=== PATIENT | female | born 1965 | race Caucasian/White ===

== ENCOUNTER → 2016-09-10 | Outpatient (CLI) | payer BC ==
[2016-09-10 09:10] LABS: CHLORIDE,CL 108 mmol/L (98-110); SODIUM,NA 141 mmol/L (136-146)
== END ==
LOC: MW.CHOBGYN 08:23
PROVIDERS: ATTEND Nurse Practitioner Women's Health
DX: E03.9 Hypothyroidism, unspecified (principal); E78.5 Hyperlipidemia, unspecified; E55.9 Vitamin D deficiency, unspecified; R53.83 Other fatigue
CPT/HCPCS: 36415; 80053; 80061; 82607; 82652; 84443; 85025

== ENCOUNTER 2019-03-13 16:30 | Emergency (ER) | payer BC ==
[2019-03-13] MEDS ORDERED: Sodium Chloride 0.9% 1,000 ML IV ONE (16:34)
[2019-03-13] MEDS ORDERED: Sodium Chloride 0.9% 10 ML Syringe FLUSH PRN (16:34)
[2019-03-13] MEDS ORDERED: Sodium Chloride 0.9% 2.5 ML Syringe FLUSH PRN (16:34)
[2019-03-13] MEDS ORDERED: Ondansetron 4 MG/2 ML SDV IVPUSH ONE (16:47)
[2019-03-13] MEDS ORDERED: diphenhydrAMINE 50 MG/ML SDV IVPUSH ONE (16:47)
[2019-03-13] MEDS ORDERED: Ketorolac 30 MG/ML SDV IVPUSH ONE (16:47)
--- NOTE | 2019-03-13 16:56 | EDM.PDOC ---
ED HPI GENERAL MEDICAL PROBLEM - General Chief Complaint: Abdominal Pain Stated Complaint: ABDOMINAL PAIN Time Seen by Provider: 03/13/19 16:32 Source of Information: Reports: Patient History Limitations: Reports: No Limitations - History of Present Illness INITIAL COMMENTS - FREE TEXT/NARRATIVE: HISTORY AND PHYSICAL: History of present illness: Patient is a 54-year-old female who presents to the emergency room with complaints of upper abdominal pain 9 days. Patient reports that pain started after she was moving heavy furniture well at home. Initially she had thought that this could be musculoskeletal related that as the pain has not improved she feels there is "something more". She describes the pain as constant pressure to the epigastric area in the left and right upper quadrants. She does have some left flank pain and tenderness. Reports intermittent nausea without vomiting. She states she feels like her epigastric area is "swollen". States eating doesn't make the pain worse; but "sharper" in intensity. She has tried several [id number] products such as Tums, Prilosec and laxatives, without any improvement. Today she had gone to the clinic who had done lab work and an x -ray. Lab work is unremarkable. X-ray done at [facility] showed prominent segment of air-filled bowel within the right mid abdomen possibly representing a dilated segment of small bowel vs air within the cecum. Recommended CT, therefor was referred to our ER. Past medical history of multiple previous GI problems. Patient denies any fever, chills, headache, change in vision, syncope or near syncope. Denies any chest pain, back pain, shortness of breath or cough. Denies any vomiting, diarrhea, constipation or dysuria. Has not noted any blood in urine or stool. Patient has been eating and drinking appropriately. Review of systems: As per history of present illness and below otherwise all systems reviewed and negative. Past medical history: As per history of present illness and as reviewed below otherwise noncontributory. Surgical history: As per history of present illness and as reviewed below otherwise noncontributory. Social history: See social history for further information Family history: As per history of present illness and as reviewed below otherwise noncontributory. Physical exam: General: Well-developed and well-nourished 54-year-old female. Alert and oriented. Nontoxic appearing and in no acute distress. HEENT: Atraumatic, normocephalic, pupils equal and reactive bilaterally, negative for conjunctival pallor or scleral icterus, mucous membranes moist, trachea midline. No drooling or trismus noted. No meningeal signs. No hot potato voice noted. Lungs: Clear to auscultation, breath sounds equal bilaterally, chest nontender. Heart: S1S2, regular rate and rhythm without overt murmur Abdomen: Soft, nondistended, RUQ/LUQ and epigastric tenderness. Negative for masses or hepatosplenomegaly. Left sided costovertebral tenderness. Pelvis: Stable nontender. Skin: Intact, warm, dry. No lesions or rashes noted. Extremities: Atraumatic, moves all extremities per self without difficulty or deficits, negative for cords or calf pain. Neurovascular unremarkable. Neuro: Awake, alert, oriented. Cranial nerves II through XII unremarkable. Cerebellum unremarkable. Motor and sensory unremarkable throughout. Exam nonfocal. Notes: Please note that the provider at [place] does have an H. pylori and stool studies pending. She has prescribed a PPI and Cipro which are waiting for patient to leaf size picker. CT shows questionable thickening of the wall of the descending colon, consider infectious/inflammatory etiologies. Urinary bladder wall thickening. Patient does have wbc's in the urine, we will treat for UTI. Supportive care measures were reviewed and discussed. Voices understanding and is agreeable to plan of care. Denies any further questions or concerns at this time. Diagnostics: CBC, CMP, UA, CT abd/pelvis Therapeutics: IV fluids, Toradol, Zofran, Benadryl, Cipro Impression: Abdominal pain UTI Plan: 1. Beaver diet and advance diet as tolerated. Small frequent sips of fluids to prevent dehydration. 2. music supervisor your prescription tomorrow and start the Cipro (for the colon and UTI ). 3. Follow up with your primary care provider and general surgeon as we discussed. 4. Return to the ED as needed and as discussed. Definitive disposition and diagnosis as appropriate pending reevaluation and review of above. Abdomen Pain Score (Numeric/FACES): 5 - Related Data Allergies Allergy/AdvReac Type Severity Reaction Status Date / Time adhesive tape Allergy Rash Verified 03/13/19 16:48 latex Allergy Rash Verified 03/13/19 16:48 shellfish derived Allergy Rash Verified 03/13/19 16:48 Home Meds: Home Meds Levothyroxine Sodium [Synthroid] 125 mcg PO DAILY 09/25/15 [History] Ciprofloxacin [Ciprofloxacin HCl] 500 mg PO BID 03/13/19 [History] Ezetimibe 10 mg PO DAILY 03/13/19 [History] Fenofibric Acid (Choline) [Fenofibric Acid] 135 mg PO DAILY 03/13/19 [History] Pantoprazole [ProTONIX] 40 mg PO DAILY 03/13/19 [History] Past Medical History HEENT History: Reports: Impaired Vision Other HEENT History: wears glasses Cardiovascular History: Reports: High Cholesterol Other Cardiovascular History: states has a "fatty liver" Respiratory History: Reports: PE Other Respiratory History: states had Pulmonary Embolism 20 years ago after Hysterectomy Gastrointestinal History: Reports: Chronic Constipation, Diverticulosis, GERD, Irritable Bowel Syndrome, Other (See Below) Other Gastrointestinal History: hx of diverticulitis Genitourinary History: Reports: None BRIM CUTTER History: Reports: None Musculoskeletal History: Reports: Back Pain, Chronic, Fracture, Fibromyalgia Other Musculoskeletal History: hx of fx left leg, toes, ribs wrist, arm; states has 2 bulging discs in back Neurological History: Reports: Headaches, Chronic Other Neuro History: states due to sinuses Psychiatric History: Reports: None Endocrine/Metabolic History: Reports: Hypothyroidism, Obesity/BMI 30+ Hematologic History: Reports: None Immunologic History: Reports: None Oncologic (Cancer) History: Reports: Uterine Dermatologic History: Reports: Other (See Below) Other Dermatologic History: states has dry skin due to low thyroid - Past Surgical History GI Surgical History: Reports: Appendectomy, Hernia, Inguinal Female Surgical History: Reports: Breast Biopsy, D&C, Hysterectomy, Salpingo- Oophorectomy, Tubal Ligation, Other (See Below) Oncologic Surgical History: Reports: Other (See Below) ED ROS GENERAL - Review of Systems Review Of Systems: ROS reveals no pertinent complaints other than HPI. ED EXAM, GI/ABD - Physical Exam Exam: See Below (See dictation) Course - Vital Signs Last Recorded V/S: Last Vital Signs Temp 96.2 F 03/13/19 16:44 Pulse 72 03/13/19 19:45 Resp 18 03/13/19 19:45 BP 131/76 03/13/19 19:45 Pulse Ox 98 03/13/19 19:45 - Orders/Labs/Meds Labs: Laboratory Tests 03/13/19 03/13/19 03/13/19 Range/Units 17:11 17:11 17:11 WBC 11.18 H (4.0-11.0) K/uL RBC 4.86 (4.30-5.90) M/uL Hgb 15.2 (12.0-16.0) g/dL Hct 44.9 (36.0-46.0) % MCV 92.4 (80.0-98.0) fL MCH 31.3 (27.0-32.0) pg MCHC 33.9 (31.0-37.0) g/dL RDW Std Deviation 48.2 (28.0-62.0) fl RDW Coeff of Bernadette 14 (11.0-15.0) % Plt Count 318 (150-400) K/uL MPV 11.20 (7.40-12.00) fL Neut % (Auto) 61.3 (48.0-80.0) % Lymph % (Auto) 30.9 (16.0-40.0) % Nye % (Auto) 5.0 (0.0-15.0) % Eos % (Auto) 2.2 (0.0-7.0) % Baso % (Auto) 0.6 (0.0-1.5) % Neut # (Auto) 6.9 H (1.4-5.7) K/uL Lymph # (Auto) 3.5 H (0.6-2.4) K/uL Nye # (Auto) 0.6 (0.0-0.8) K/uL Eos # (Auto) 0.3 (0.0-0.7) K/uL Baso # (Auto) 0.1 (0.0-0.1) K/uL Nucleated RBC % 0.0 /100WBC Nucleated RBCs # 0 K/uL Sodium 133 L (136-145) mmol/L Potassium 4.3 (3.5-5.1) mmol/L Chloride 96 L (98-107) mmol/L Carbon Dioxide 23.5 (21.0-32.0) mmol/L BUN 7 (7.0-18.0) mg/dL Creatinine 0.8 (0.6-1.0) mg/dL Est Cr Clr Drug Dosing 69.42 mL/min Estimated GFR (MDRD) > 60.0 ml/min Glucose 101 (74-106) mg/dL Calcium 9.3 (8.5-10.1) mg/dL Total Bilirubin 0.5 (0.2-1.0) mg/dL AST 24 (15-37) IU/L ALT 26 (14-63) IU/L Alkaline Phosphatase 100 (46-116) U/L Total Protein 8.8 H (6.4-8.2) g/dL Albumin 4.3 (3.4-5.0) g/dL Globulin 4.5 H (2.6-4.0) g/dL Albumin/Globulin Ratio 1.0 (0.9-1.6) Lipase (73-393) U/L Urine Color YELLOW Urine Appearance CLEAR Urine pH 5.5 (5.0-8.0) Ur Specific [place] <= 1.005 (1.001-1.035) Urine Protein NEGATIVE (NEGATIVE) mg/dL Urine Glucose (UA) NEGATIVE (NEGATIVE) mg/dL Urine Ketones NEGATIVE (NEGATIVE) mg/dL Urine Occult Blood NEGATIVE (NEGATIVE) Urine Nitrite NEGATIVE (NEGATIVE) Urine Bilirubin NEGATIVE (NEGATIVE) Urine Urobilinogen 0.2 (<2.0) EU/dL Ur Leukocyte Esterase TRACE H (NEGATIVE) Urine RBC 0-1 (0-2/HPF) Urine WBC 4-5 (0-5/HPF) Ur Epithelial Cells OCCASIONAL (NONE-FEW) Urine Bacteria FEW (NEGATIVE) Urine Mucus FEW (NONE-MOD) 03/13/19 Range/Units 17:11 WBC (4.0-11.0) K/uL RBC (4.30-5.90) M/uL Hgb (12.0-16.0) g/dL Hct (36.0-46.0) % MCV (80.0-98.0) fL MCH (27.0-32.0) pg MCHC (31.0-37.0) g/dL RDW Std Deviation (28.0-62.0) fl RDW Coeff of Bernadette (11.0-15.0) % Plt Count (150-400) K/uL MPV (7.40-12.00) fL Neut % (Auto) (48.0-80.0) % Lymph % (Auto) (16.0-40.0) % Nye % (Auto) (0.0-15.0) % Eos % (Auto) (0.0-7.0) % Baso % (Auto) (0.0-1.5) % Neut # (Auto) (1.4-5.7) K/uL Lymph # (Auto) (0.6-2.4) K/uL Nye # (Auto) (0.0-0.8) K/uL Eos # (Auto) (0.0-0.7) K/uL Baso # (Auto) (0.0-0.1) K/uL Nucleated RBC % /100WBC Nucleated RBCs # K/uL Sodium (136-145) mmol/L Potassium (3.5-5.1) mmol/L Chloride (98-107) mmol/L Carbon Dioxide (21.0-32.0) mmol/L BUN (7.0-18.0) mg/dL Creatinine (0.6-1.0) mg/dL Est Cr Clr Drug Dosing mL/min Estimated GFR (MDRD) ml/min Glucose (74-106) mg/dL Calcium (8.5-10.1) mg/dL Total Bilirubin (0.2-1.0) mg/dL AST (15-37) IU/L ALT (14-63) IU/L Alkaline Phosphatase (46-116) U/L Total Protein (6.4-8.2) g/dL Albumin (3.4-5.0) g/dL Globulin (2.6-4.0) g/dL Albumin/Globulin Ratio (0.9-1.6) Lipase 248 (73-393) U/L Urine Color Urine Appearance Urine pH (5.0-8.0) Ur Specific [place] (1.001-1.035) Urine Protein (NEGATIVE) mg/dL Urine Glucose (UA) (NEGATIVE) mg/dL Urine Ketones (NEGATIVE) mg/dL Urine Occult Blood (NEGATIVE) Urine Nitrite (NEGATIVE) Urine Bilirubin (NEGATIVE) Urine Urobilinogen (<2.0) EU/dL Ur Leukocyte Esterase (NEGATIVE) Urine RBC (0-2/HPF) Urine WBC (0-5/HPF) Ur Epithelial Cells (NONE-FEW) Urine Bacteria (NEGATIVE) Urine Mucus (NONE-MOD) Meds: Medications Discontinued Medications Generic Name Dose Route Start Last Admin Trade Name Jamie PRN Reason Stop Dose Admin Ciprofloxacin 500 mg 03/13/19 19:16 03/13/19 19:37 Ciprofloxacin Hcl PO 03/13/19 19:17 500 mg ONETIME ONE Administration Diphenhydramine HCl 50 mg 03/13/19 16:47 03/13/19 17:15 Benadryl IVPUSH 03/13/19 16:48 50 mg ONETIME ONE Administration Sodium Chloride 1,000 mls @ 125 mls/hr 03/13/19 16:34 03/13/19 17:13 Normal Saline IV 03/14/19 00:33 125 mls/hr STAT ONE Administration Iopamidol 100 ml 03/13/19 18:35 03/13/19 18:35 Isovue Multipack-370 (76%) IVPUSH 03/13/19 18:36 100 ml ONETIME STA Administration Ketorolac Tromethamine 30 mg 03/13/19 16:47 03/13/19 17:14 Toradol IVPUSH 03/13/19 16:48 30 mg ONETIME ONE Administration Ondansetron HCl 4 mg 03/13/19 16:47 03/13/19 17:15 Zofran IVPUSH 03/13/19 16:48 4 mg ONETIME ONE Administration Sodium Chloride 10 ml 03/13/19 16:34 03/13/19 17:13 Saline Flush FLUSH 10 ml ASDIRECTED PRN Administration Keep Vein Open Sodium Chloride 2.5 ml 03/13/19 16:34 03/13/19 17:13 Saline Flush FLUSH 2.5 ml ASDIRECTED PRN Administration Keep Vein Open Departure - Departure Time of Disposition: 19:15 Disposition: Home, Self-Care 01 Clinical Impression: Abdominal pain Qualifiers: Abdominal location: upper abdomen, unspecified Qualified Code(s): R10.10 - Upper abdominal pain, unspecified UTI (urinary tract infection) Qualifiers: Urinary tract infection type: acute cystitis Hematuria presence: with hematuria Qualified Code(s): N30.01 - Acute cystitis with hematuria - Discharge Information Instructions: Urinary Tract Infection, Adult, [id number], Abdominal Pain, Adult, [id number] Referrals: Catrachita Gordon COMMUNICATION STUDIES PROFESSOR [Primary Care Provider] - Forms: ED Department Discharge Additional Instructions: The following information is given to patients seen in the emergency department who are being discharged to home. This information is to outline your options for follow-up care. We provide all patients seen in our emergency department with a follow-up referral. The need for follow-up, as well as the timing and circumstances, are variable depending upon the specifics of your emergency department visit. If you don't have a primary care physician on staff, we will provide you with a referral. We always advise you to contact your personal physician following an emergency department visit to inform them of the circumstance of the visit and for follow-up with them and/or the need for any referrals to a consulting specialist. The emergency department will also refer you to a specialist when appropriate. This referral assures that you have the opportunity for follow-up care with a specialist. All of these measure are taken in an effort to provide you with optimal care, which includes your follow-up. Under all circumstances we always encourage you to contact your private physician who remains a resource for coordinating your care. When calling for follow-up care, please make the office aware that this follow-up is from your recent emergency room visit. If for any reason you are refused follow-up, please contact the [facility] Emergency Department at and asked to speak to the emergency department charge nurse. [facility] [address] [place] [id number] [address] [facility] - General Surgery Professional Building [address], [address] [place] [address] 1. Beaver diet and advance diet as tolerated. Small frequent sips of fluids to prevent dehydration. 2. music supervisor your prescription tomorrow and start the Cipro (for the colon and UTI ). 3. Follow up with your primary care provider and general surgeon as we discussed. 4. Return to the ED as needed and as discussed.
[2019-03-13 17:54] LABS: BLOOD UREA NITROGEN,BUN 7 mg/dL (7.0-18.0); CARBON DIOXIDE,CO2 23.5 mmol/L (21.0-32.0); CHLORIDE,CL 96 mmol/L (98-107); GLUCOSE RANDOM 101 mg/dL (74-106); POTASSIUM,K 4.3 mmol/L (3.5-5.1); SODIUM,NA 133 mmol/L (136-145)
[2019-03-13] MEDS ORDERED: Iopamidol 755 MG/ML 500 ML Multipack Bottle IVPUSH STA (18:35)
--- NOTE | 2019-03-13 19:05 | CT ---
Indication: Dilated loops of bowel, right upper quadrant. Technique: Multiple contiguous axial images were obtained from the thoracic inlet through the upper abdomen after the intravenous administration 100 milliliters Isovue 370. Please note that all CT scans at this facility use dose modulation, iterative reconstruction, and/or weight-based dosing when appropriate to reduce radiation dose to as low as reasonably achievable. Comparison: None Findings: Bibasilar atelectasis is identified. The lung bases are clear. The heart is normal in size. No pericardial effusions identified. The liver, gallbladder, spleen, pancreas, adrenals, and kidneys are normal. No intrahepatic biliary ductal dilatation is identified. A small right renal cyst is identified. No hydronephrosis is identified. The liver is enlarged measuring 22 centimeters in size. In the pelvis, the urinary bladder demonstrates wall thickening. No uterus is identified. The small and large bowel is normal in caliber. There is questionable thickening of the ascending colon wall. No free air free fluid is identified within the abdomen or pelvis. Aorta is normal in caliber. Vascular calcifications are identified. Degenerative changes of the spine are identified. Impression: Hepatomegaly. Questionable thickening of the wall of the ascending colon, consider infectious/inflammatory etiologies. Urinary bladder wall thickening. Please note that all CT scans at this facility use dose modulation, iterative reconstruction, and/or weight-based dosing when appropriate to reduce radiation dose to as low as reasonably achievable. Dictated by Mirian Castellon MD @ Mar 13 2019 7:00PM Signed by Dr. Mirian Castellon @ Mar 13 2019 7:04PM
[2019-03-13] MEDS ORDERED: Ciprofloxacin 500 MG Tab PO ONE (19:16)
[2019-03-13 19:45] VITALS: BP 131/76; PULSE 72
== END 2019-03-13 19:46 | disposition home or self-care (01) ==
LOC: MW.ED 16:30
DX: R10.11 Right upper quadrant pain (principal); R10.13 Epigastric pain; N30.01 Acute cystitis with hematuria; E78.00 Pure hypercholesterolemia, unspecified; E03.9 Hypothyroidism, unspecified; K21.9 Gastro-esophageal reflux disease without esophagitis; E66.9 Obesity, unspecified; Z68.30 Body mass index [BMI] 30.0-30.9, adult; Z79.890 Hormone replacement therapy; Z79.899 Other long term (current) drug therapy; Z91.040 Latex allergy status; Z91.013 Allergy to seafood; Z91.048 Other nonmedicinal substance allergy status
CPT/HCPCS: 74177; 80053; 81001; 83690; 85025; 87086; 96361; 96374; 96375; 99284; A9270; J1200; J1885; J2405; J7040; Q9967

== ENCOUNTER 2019-05-15 08:47 | Day surgery (SDC) | payer BC ==
[~2019-05-15 08:47] MED LIST: Lactated Ringers 1,000 ML IV SCH; Sodium Chloride 0.9% 10 ML SDV IV PRN; Sodium Chloride 0.9% 10 ML Syringe FLUSH PRN; Sodium Chloride 0.9% 2.5 ML Syringe FLUSH PRN
--- NOTE | 2019-05-15 09:33 | PCM.PREANE ---
Preanesthetic Assessment - Anesthesia/Transfusion/Family Hx Anesthesia History: Prior Anesthesia Reaction (allergic to some unknown anesthesia drug) Other Type of Anesthesia Reaction Comment: states she, her sister & her mom all has problems with N&V post anesthesia Family History of Anesthesia Reaction: No Transfusion History: Prior Transfusion Without Reaction - Review of Systems General: No Symptoms Pulmonary: No Symptoms Cardiovascular: No Symptoms Neurological: No Symptoms Other: Reports: None - Physical Assessment NPO Status Date: 05/14/19 Height: 5 ft 5 in Weight: 83.461 kg ASA Class: 3 Mental Status: Alert & Oriented x3 Airway Class: Mallampati = 2 Dentition: Reports: Bridge (central maxiallary) ROM/Head Extension: Full Lungs: Clear to Auscultation, Normal Respiratory Effort Cardiovascular: Regular Rate, Regular Rhythm - Allergies Allergies/Adverse Reactions: Allergies Allergy/AdvReac Type Severity Reaction Status Date / Time adhesive tape Allergy Rash/bliste Verified 05/15/19 09:32 rs latex Allergy Rash Verified 05/15/19 09:32 morphine Allergy Nausea and Verified 05/15/19 09:32 Vomiting shellfish derived Allergy Rash Verified 05/15/19 09:32 - Blood Blood Available: No - Anesthesia Plan Pre-Op Medication Ordered: None - Acknowledgements Anesthesia Type Planned: General Anesthesia Pt an Appropriate Candidate for the Planned Anesthesia: Yes Alternatives and Risks of Anesthesia Discussed w Pt/Guardian: Yes Pt/Guardian Understands and Agrees with Anesthesia Plan: Yes Additional Comments: PMH: RAD, thyroid replacement, IBS, smoker, hx of PE chart review shows that in 2010 she had GA using the following meds without any adverse reaction (dexamethasone, zofran, toradol, Sevo, ephedrine, fentanyl, midazolam, propofol, sux, and cefoxitan) PLAN: TIVA with propofol and midaz and/or fent as needed. PreAnesthesia Questionnaire HEENT History: Reports: Allergic Rhinitis Other HEENT History: wears glasses for night driving Cardiovascular History: Reports: High Cholesterol Other Cardiovascular History: states has low blood pressure Respiratory History: Reports: PE, Other (See Below) Other Respiratory History: states had Pulmonary Embolism over 20 years ago after Hysterectomy, states has bronchial asthma and has inhaler for when she gets sick Gastrointestinal History: Reports: Diverticulosis, Irritable Bowel Syndrome, Other (See Below) Other Gastrointestinal History: occasional heartburn Genitourinary History: Reports: Renal Calculus CHILD AND ADOLESCENT PSYCHIATRIST History: Reports: Endometriosis Musculoskeletal History: Reports: Back Pain, Chronic, Fracture, Fibromyalgia Other Musculoskeletal History: hx of fx left leg, toes, ribs wrist, arm; states has 2 bulging discs in back Neurological History: Reports: None Psychiatric History: Reports: None Endocrine/Metabolic History: Reports: Hypothyroidism Hematologic History: Reports: Blood Transfusion(s) Immunologic History: Reports: None Oncologic (Cancer) History: Reports: None Dermatologic History: Reports: Other (See Below) Other Dermatologic History: states has dry skin due to low thyroid - Infectious Disease History Infectious Disease History: Reports: Chicken Pox - Past Surgical History Head Surgeries/Procedures: Reports: None HEENT Surgical History: Reports: None Cardiovascular Surgical History: Reports: None Respiratory Surgical History: Reports: None GI Surgical History: Reports: Appendectomy, Colonoscopy, Hernia, Inguinal Female Surgical History: Reports: Breast Biopsy, D&C, Hysterectomy, Salpingo- Oophorectomy, Tubal Ligation, Other (See Below) Other Female Surgeries/Procedures: exploratory Laparoscopy x3 Endocrine Surgical History: Reports: None Neurological Surgical History: Reports: None Musculoskeletal Surgical History: Reports: Other (See Below) Other Musculoskeletal Surgeries/Procedures:: surgery for left cracked knee Oncologic Surgical History: Reports: Biopsy of Breast Dermatological Surgical History: Reports: None - SUBSTANCE USE Smoking Status *Q: Current Every Day Smoker Tobacco Use Within Last Twelve Months: Cigarettes - HOME MEDS Home Medications: Home Meds Levothyroxine Sodium [Synthroid] 125 mcg PO DAILY 09/25/15 [History] Ezetimibe 10 mg PO DAILY 03/13/19 [History] Fenofibric Acid (Choline) [Fenofibric Acid] 135 mg PO DAILY 03/13/19 [History] Albuterol Sulfate [Albuterol Sulfate Hfa] 1 - 2 puff INH ASDIRECTED PRN [History] Ascorbic Acid [Vitamin C] 2 tab PO DAILY 05/11/19 [History] Calcium Carbonate [Tums] 1 tab.chew CHEW ASDIRECTED PRN 05/11/19 [History] Cholecalciferol (Vitamin D3) [Vitamin D3] 2,000 units PO DAILY 05/11/19 [History ] Cyanocobalamin (Vitamin B-12) [Vitamin B12] 2,500 mg PO ASDIRECTED 05/11/19 [ History] Magnesium Oxide 400 mg PO DAILY 05/11/19 [History] Ubidecarenone [Coq-10] 200 mg PO DAILY 05/11/19 [History] Zinc Gluconate [Zinc] 50 mg PO DAILY 05/11/19 [History] - CURRENT (IN HOUSE) MEDS Current Meds: Current Medications Lactated Ringer's (Ringers, Lactated) 1,000 mls @ 125 mls/hr IV ASDIRECTED NGOC Sodium Chloride (Saline Flush) 10 ml FLUSH ASDIRECTED PRN PRN Reason: Keep Vein Open Sodium Chloride (Saline Flush) 2.5 ml FLUSH ASDIRECTED PRN PRN Reason: Keep Vein Open Sodium Chloride (Saline Flush) 10 ml FLUSH ASDIRECTED PRN PRN Reason: Keep Vein Open Sodium Chloride (Saline Flush) 2.5 ml FLUSH ASDIRECTED PRN PRN Reason: Keep Vein Open Sodium Chloride (Normal Saline) 10 ml IV ASDIRECTED PRN PRN Reason: IV Use
[2019-05-15] MEDS ORDERED: Propofol 200 MG/20 ML SDV ONE (10:37)
[2019-05-15] MEDS ORDERED: Midazolam 1 MG/ML 2 ML SDV ONE (10:37)
[2019-05-15] MEDS ORDERED: Lidocaine 2% 5 ML SDV ONE (10:39)
[2019-05-15] MEDS ORDERED: Glycopyrrolate 0.2 MG/ML SDV ONE (10:39)
[2019-05-15] MEDS ORDERED: Ondansetron 4 MG/2 ML SDV ONE (11:16)
--- NOTE | 2019-05-15 11:58 | PCM.OPNOTE ---
- General Post-Op/Procedure Note Date of Surgery/Procedure: 05/15/19 Operative Procedure(s): Diagnostic EGD and colonoscopy Findings: Normal EGD and colonoscopy Pre Op Diagnosis: epigastric discomfort, ascending colon thickness Post-Op Diagnosis: Normal EGD and colonoscopy Anesthesia Technique: JUANCARLOS Primary Surgeon: Ellie Fuentes Condition: Good
--- NOTE | 2019-05-15 12:30 | OR ---
SURGEON: ELLIE FUENTES MD DATE OF PROCEDURE: 05/15/2019 PREOPERATIVE DIAGNOSES: Abdominal complaints, ascending colon thickness. POSTOPERATIVE DIAGNOSES: 1. Abdominal complaints 2. Normal colonoscopy. PROCEDURES PERFORMED: Diagnostic esophagogastroduodenoscopy and colonoscopy. PRIMARY SURGEON: Ellie Fuentes MD. ANESTHESIA: MAC. INSTRUMENT USED: Olympus endoscope, colonoscope. EXTENT OF EXAM: To the second portion of duodenum, to the cecum. PREPARATION: Good. LIMITATIONS: None. INDICATIONS FOR EXAMINATION: The patient is a 54-year-old female who presented with various abdominal complaints including bloating. A CT scan was done that showed questionable ascending colon thickness. The decision was made to proceed with diagnostic EGD and colonoscopy. I explained the procedure; expected perioperative course; and risks including bleeding, infection, or damage to surrounding structures including perforation. The patient verbalized understanding and wishes to proceed. PROCEDURE IN DETAIL: The patient was brought into the endoscopy suite and placed on the left lateral decubitus position. A time-out was completed verifying the patient's name, age, date of , allergies, and procedure to be performed. Monitored anesthesia care was induced and continuous oxygen was provided via nasal cannula throughout the procedure. After adequate sedation was achieved, a well-lubricated endoscope was placed in the patient's mouth over a bite block and advanced under direct visualization to the level of the second portion of duodenum. This appeared normal and a photograph was taken. Scope was then fully withdrawn while examining the color, texture, anatomy, and integrity of the mucosa of the upper GI tract. The duodenum appeared normal. The scope was brought into the stomach and a photograph was taken of the pylorus and GE junction. Both appeared anatomically normal. The stomach lining itself had no evidence of gross inflammation or ulceration. Biopsies were taken of the gastric antrum, body, and fundus and sent for histologic review and H. pylori testing. The scope was then brought into the distal esophagus and a photograph was taken of the Z-line. This appeared normal. A biopsy was taken of the esophageal mucosa 1 cm above the Z-line. The remainder of the esophageal mucosa appeared normal. The scope was removed and this portion of the procedure terminated. A digital rectal exam was performed. This exam was within normal limits. A well- lubricated colonoscope was inserted in the rectum and advanced under direct visualization to the level of the cecum. The cecum was identified by both visual and anatomic landmarks. A photograph was taken of the cecal cap; however, I was unable to retroflex the scope within the cecum due to looping of the scope more proximally. The scope was then fully withdrawn while examining the color, texture, anatomy, and integrity of the mucosa from the cecum to the anal canal. No gross abnormalities were seen. Biopsies were taken of the ascending colon, transverse colon, and sigmoid colon and sent to pathology for histologic review. The scope was brought into the rectum and retroflexed to allow visualization of the anal canal opening. This appeared normal and a photograph was taken. The scope was then straightened out and fully withdrawn. The cecum to anus time was 7 minutes. The patient tolerated procedure the well and was transferred to the PACU in stable condition. ENDOSCOPIC DIAGNOSES: Abdominal complaints, normal colonoscopy. RECOMMENDATIONS: Follow up in clinic in 2 weeks. HERON CHOUDHARY /[id number] DEBBY
--- NOTE | 2019-05-15 12:37 | PCM.POSTAN ---
POST ANESTHESIA ASSESSMENT - MENTAL STATUS Mental Status: Alert, Oriented - VITAL SIGNS Vital Signs: Last Vital Signs Temp 95.9 F 05/15/19 09:36 Pulse 79 05/15/19 11:59 Resp 13 05/15/19 11:59 BP 96/58 L 05/15/19 11:59 Pulse Ox 97 05/15/19 11:59 - RESPIRATORY Respiratory Status: Respiratory Rate WNL, Airway Patent, O2 Saturation Stable - CARDIOVASCULAR CV Status: Pulse Rate WNL, Blood Pressure Stable - GASTROINTESTINAL GI Status: No Symptoms - POST OP HYDRATION Hydration Status: Adequate & Stable
--- NOTE | 2019-05-15 12:37 | PCM48HPAN ---
Post Anesthesia Note - EVALUATION WITHIN 48HRS OF ANESTHETIC Vital Signs in Normal Range: Yes Patient Participated in Evaluation: Yes Respiratory Function Stable: Yes Airway Patent: Yes Cardiovascular Function Stable: Yes Hydration Status Stable: Yes Pain Control Satisfactory: Yes Nausea and Vomiting Control Satisfactory: Yes Mental Status Recovered: Yes Vital Signs: Last Vital Signs Temp 95.9 F 05/15/19 09:36 Pulse 79 05/15/19 11:59 Resp 13 05/15/19 11:59 BP 96/58 L 05/15/19 11:59 Pulse Ox 97 05/15/19 11:59
[2019-05-15 13:44] VITALS: BP 100/59; PULSE 73
== END 2019-05-15 12:50 | disposition home or self-care (01) ==
LOC: MW.SDS 08:47
PROVIDERS: ATTEND Surgery
DX: K20.9 Esophagitis, unspecified (principal); K63.89 Other specified diseases of intestine; E78.5 Hyperlipidemia, unspecified; E78.00 Pure hypercholesterolemia, unspecified; J45.909 Unspecified asthma, uncomplicated; E05.40 Thyrotoxicosis factitia without thyrotoxic crisis or storm; E03.9 Hypothyroidism, unspecified; F17.210 Nicotine dependence, cigarettes, uncomplicated; Z88.4 Allergy status to anesthetic agent; Z91.048 Other nonmedicinal substance allergy status; Z91.040 Latex allergy status; Z91.013 Allergy to seafood; Z79.899 Other long term (current) drug therapy
CPT/HCPCS: 43239; 45380; J2001; J2250; J2405; J2704; J3490; J7120; 00813; 88305; 88312